=== PATIENT | male | born 1985 | race Two or more races ===

== ENCOUNTER 2020-09-02 08:51 | Emergency (ER) | payer BC ==
[2020-09-02 08:56] VITALS: BP 113/74; PULSE 83; RESP 18; TEMP 97.7
[2020-09-02] MEDS ORDERED: KETOROLAC 15 MG/ML 1 ML VIAL IM STA (09:15)
[2020-09-02] MEDS ORDERED: diazePAM 5 MG TAB PO STA (09:15)
--- NOTE | 2020-09-02 09:19 | ED ---
Neck Injury/Pain HPI - General Chief Complaint: Neck Pain/Injury Stated Complaint: neck pain Time Seen by Provider: 09/02/20 08:59 Mode of arrival: ambulatory Limitations: no limitations - History of Present Illness Initial Comments: Patient is a 34-year-old male presenting to the emergency Department with complaints of pain in the right side of his neck for the past 2 days. Patient states he woke up 2 mornings ago noticed some tightness on the right side of his neck, thought he slept wrong. He states over the past 24 hours the pain has increased, it hurts to move around his right shoulder. He states any kind of neck range of motion increases his pain as well. He said no fevers or chills, no falls or trauma. He has had no previous history of neck surgeries or injur ies. He denies any chest pain or shortness of breath. Has no further complaints at this time. - Related Data Previous Rx's Medication Instructions Recorded Cyclobenzaprine [Flexeril] 5 mg PO BID #10 tablet 09/02/20 Allergies Allergy/AdvReac Type Severity Reaction Status Date / Time Penicillins Allergy Rash/Hives Verified 09/02/20 08:57 Review of Systems ROS Statement: Those systems with pertinent positive or pertinent negative responses have been documented in the HPI. ROS Other: All systems not noted in ROS Statement are negative. Past Medical History Past Medical History: No Reported History History of Any Multi-Drug Resistant Organisms: None Reported Past Surgical History: No Surgical Hx Reported Past Psychological History: No Psychological Hx Reported Smoking Status: Current every day smoker Past Alcohol Use History: Occasional Past Drug Use History: None Reported General Exam - General Exam Comments Initial Comments: GENERAL: Patient is well-developed and well-nourished. Patient is nontoxic and in mild distress. HEAD: Atraumatic, normocephalic. EYES: Pupils equal round and reactive to light, extraocular movements intact, sclera anicteric, conjunctiva are normal. Eyelids were unremarkable. ENT: Nares patent, oropharynx clear without exudates. Moist mucous membranes. NECK: Pain with palpation along the right cervical paraspinals and down the right upper trap. He does have muscle spasms present. Increased pain with any active cervical range of motion. supple without lymphadenopathy or JVD. LUNGS: Unlabored respirations. Breath sounds clear to auscultation bilaterally and equal. No wheezes rales or rhonchi. HEART: Regular rate and rhythm without murmurs, rubs or gallops. MUSCULOSKELETAL: Normal extremities with adequate strength and normal range of motion, no pitting or edema. No clubbing or cyanosis. NEUROLOGICAL: Patient is alert and oriented x 3. Motor and sensory are also intact. Cranial nerves II through XII grossly intact. Symmetrical smile. Normal speech, normal gait. PSYCH: Normal mood, normal affect. SKIN: Warm, Dry, normal turgor, no rashes or lesions noted. Limitations: no limitations Course Vital Signs 09/02/20 08:52 Temperature 97.7 F Pulse Rate 83 Respiratory 18 Rate Blood Pressure 113/74 O2 Sat by Pulse 100 Oximetry Medical Decision Making - Medical Decision Making Patient is a 34-year-old male here with right-sided neck discomfort over the past 2 days. His exam is consistent with a right-sided cervical muscle strain, muscle spasm. I will give him a Toradol injection today along with a muscle relaxer. I'll also send him home with a prescription for Flexeril, recommended Tylenol or Motrin and lots of heat and gentle stretching to the area. He can follow-up with his PCP. He is stable for discharge and he is in agreement with this plan of care. Case discussed with Dr. Roche. Disposition Clinical Impression: Strain of neck muscle, Trapezius muscle spasm Disposition: HOME SELF-CARE Condition: Stable Instructions (If sedation given, give patient instructions): Cervical Strain (ED) Additional Instructions: Please return to the Emergency Department if symptoms worsen or any other concerns. Recommend heat to the area, gentle stretching, muscle relaxers at nighttime. Recommend alternating between Tylenol and ibuprofen for discomfort. Follow up with your primary care physician. Prescriptions: Cyclobenzaprine [Flexeril] 5 mg PO BID #10 tablet Is patient prescribed a controlled substance at d/c from ED?: No Referrals: None,Stated [Primary Care Provider] - 1-2 days Time of Disposition: 09:19
== END 2020-09-02 09:35 | disposition home or self-care (01) ==
LOC: EC 08:51
DX: S16.1XXA Strain of muscle, fascia and tendon at neck level, initial encounter (principal); M62.838 Other muscle spasm; F17.200 Nicotine dependence, unspecified, uncomplicated; Z88.0 Allergy status to penicillin; X58.XXXA Exposure to other specified factors, initial encounter
CPT/HCPCS: 96372; 99283; J1885